=== PATIENT | male | born 1970 | race Caucasian/White ===

== ENCOUNTER 2023-01-17 05:24 | Inpatient (IN) | payer BC, SELFPAY ==
--- NOTE | ~2023-01-17 | XR_ITS ---
EXAMINATION: XR hand LT min 3V INDICATION: Left hand pain and swelling TECHNIQUE: Three views of the left hand are obtained. COMPARISON: None available FINDINGS: There is marked dorsal soft tissue swelling of the hand overlying the metacarpals. No soft tissue gas is identified. There is subchondral cystic change in the first proximal phalanx near the i nterphalangeal joint with a chronic appearing fracture at the lateral aspect at the head of the first proximal phalanx. There is mild osteoarthritis of multiple interphalangeal joints. IMPRESSION: 1. Marked dorsal soft tissue swelling of the hand overlying the metacarpals without associated soft t issue gas identified. 2. Chronic fracture in the head of the first proximal phalanx. Reviewed, dictated and finalized at location [employer]. 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 Marked dorsal soft tissue swelling of the hand overlying the metacarpals wit hout associated soft tissue gas identified. 2. Chronic fracture in the head of the first proximal phalanx.
[2023-01-17 05:22] VITALS: BP 144/83; PULSE 86; RESP 18; TEMP 37; O2SAT 100
--- NOTE | 2023-01-17 07:44 | ED.UPPEXIN ---
HPI - Extremity Injury (Upper) General Chief Complaint: Extremity Injury, Upper Stated Complaint: spider bite Time Seen by Provider: 01/17/23 06:54 History of Present Illness HPI narrative: This is a 52-year-old male, with no significant past medical history, left pain did, who presents to the emergency department complaining of pain and rapid swelling of the left hand. Patient states he was bitten by a brown recluse several days ago was started Keflex. Past 5 hours though he has noticed significant increase in swelling drainage of purulent flud. Complains of 10/10 associated dull pain. He also states he is beginning to lose sensation the fingers of the left hand. Related Data Home Medications Medication Instructions Recorded Confirmed No Home Medications 01/17/23 01/17/23 Allergies Allergy/AdvReac Type Severity Reaction Status Date / Time No Known Allergies Allergy Verified 01/17/23 05:50 Review of Systems Review of Systems: CONSTITUTIONAL: Subjective fevers Denies chills, or sweats. CARDIOVASCULAR: Denies chest pain, palpitations, or edema. RESPIRATORY: Denies cough or dyspnea. GASTROINTESTINAL: Denies abdominal pain, nausea, vomiting, or diarrhea. GENITOURINARY: Denies dysuria or hematuria. SKIN: rapid swelling, erythema and drainage of pus from the left hand MUSCULOSKELETAL: Denies back pain, joint pain, or myalgia. NEUROLOGIC: Denies headache, numbness, dizziness, or weakness. PSYCHIATRIC: Denies anxiety or depression. 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 Smoking status: Never smoker Alcohol intake: current Substance use: never Lack of Transportation: No Lack of Food: Never True Current Housing: I Have Housing Concerned About Future Housing: No Difficulty Paying Gas/Electric Bills: No Difficulty Paying for Meds: No Currently Unemployed: No Education: Decline to Answer Difficulty w/ Childcare or Family Care: No Spiritual care concerns: No Exam Narrative: GENERAL: Well-appearing, well-nourished, and in no acute distress. appears uncomfortable HEAD: Normocephalic, atraumatic. EYES: PERRLA and EOMI. CHEST: Clear to auscultation. No respiratory distress. No wheezes rales or rhonchi HEART: Regular rate and rhythm. No murmur heard. Normal peripheral pulses. EXTREMITIES: There is significant swelling and fluctuance of the left extending from the base of fingers 2 through to the wrist. There is drainage purulent fluid the dorsum of the left hand. flexion of the left hand limited by pain. NEURO: Alert and oriented x3. Decreased sensation over all 5 fingers of the left hand compared to the right. PSYCH: Normal mood and affect. Course Course Emergency Course: 08:28 - X-ray of the hand not concerning for soft tissue gas. White blood cell count elevated at 30. Hemoglobin 8.9. Chemistries demonstrate mild hyponatremia with sodium of 130 and mild hypocalcemia with calcium of 7.5. I discussed the patient with Hand surgeon, Dr. Murphy who recommends IV antibiotics, incision and drainage at bedside and will evaluate the patient. The patient is agreeable to the plan. 09:30 - Incision and drainage performed, please see procedure note. The patient notes significant improvement of his pain. I discussed the patient with hospitalist, Dr. Mcknight who accepts admission. Vital Signs Vital signs: Vital Signs Temperature 98.6 F 01/17/23 05:22 Pulse Rate 86 01/17/23 05:22 Respiratory Rate 18 01/17/23 05:22 Blood Pressure 144/83 H 01/17/23 05:22 Pulse Oximetry 100 01/17/23
[2023-01-17] MEDS: MORPHINE SULFATE (*CRX) 4 MG/ML INJ IV PUSH ×4 (08:00→22:56)
[2023-01-17] MEDS: ONDANSETRON INJ 4 MG/2 ML VIAL IV PUSH ×3 (08:00→20:39)
[2023-01-17 08:10] LABS: Basophils Absolute Auto 0.1 K/mm3 (0.0-0.1); Basophils Percent Auto 0.5 % (0.2-1.2); Eosinophils Absolute Auto 0.1 K/mm3 (0-0.3); Eosinophils Percent Auto 0.3 % (0-4.4); Hematocrit 27.8 % (42.0-52.0); Hemoglobin 8.9 g/dL (14.0-18.0); Immature Granulocyte Absolute 2.57 K/mm3 (0.00-0.031); Immature Granulocyte Percent A 8.5 % (0-0.5); Lymphocytes Absolute Auto 2.28 K/mm3 (0.9-3.2); Lymphocytes Percent Auto 7.5 % (18.3-44.2); Mean Corpuscular Hemoglobin 31.7 pg (26-34); Mean Corpuscular Volume 98.9 fl (80-100); Monocytes Absolute Auto 2.1 K/mm3 (0.1-0.6); Neutrophils Absolute Auto 23.1 K/mm3 (1.3-6.7); Neutrophils Percent Auto 76.2 % (45.5-73.1); Nucleated Red Blood Cells Absolute Auto 0.1 K/mm3 (0.0-0.012); Nucleated Red Blood Cells Perc 0.2 % (0.0-0.2); Platelet Count Result 301 k/mm3 (150-375); Red Blood Count 2.81 M/mm3 (4.6-6.20); Red Cell Distribution Width 14.8 % (11.5-14.5); White Blood Count 30.3 K/mm3 (4.5-10.0)
[2023-01-17] MEDS: MEROPENEM 1 GM/NS 100 ML 1 GM/100 ML BAG IVPB (08:10)
[2023-01-17 08:12] VITALS: BP 124/66; PULSE 79; RESP 18; O2SAT 95
[2023-01-17 08:20] LABS: Lactic Acid Reflex 1.2 mmol/L (0.7-2.0); Prothrombin Time 13.3 Seconds (11.1-14.7)
[2023-01-17 08:21] LABS: Alanine Aminotransferase 148 U/L (6-50); Albumin Level 2.6 g/dL (3.5-5.1); Alkaline Phosphatase 62 U/L (38-126); Anion Gap 4 mmol/L (8-16); Aspartate Amino Transferase 42 U/L (17-59); Bilirubin,Total 0.7 mg/dL (0.2-1.3); Blood Urea Nitrogen 35 mg/dL (9-20); Calcium 7.5 mg/dL (8.4-10.2); Carbon Dioxide 27 mmol/L (22-30); Chloride 99 mmol/L (98-107); Estimated CRCL calculation 112 ml/min; Estimated Glomerular Filt Rate > 60; Glucose 100 mg/dL (65-110); Sodium 130 mmol/L (137-145)
[2023-01-17] MEDS: CLINDAMYCIN 900 MG/D5W 50 ML 900 MG/50 ML PIGGYBACK 50 MG IVPB (08:43)
[2023-01-17] MEDS: VANCOMYCIN 1,250 MG/NS 250 ML 1,250 MG/250 ML BAG 166.67 MG IVPB (11:00)
--- NOTE | 2023-01-17 11:15 | PM.IMHP ---
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 The cables were wrapped around his hand. When he loosen them he saw a large green to brown spider crawl out on run away. His hand became red and swollen. He went to urgent care and received a prescription for Keflex 500 mg 4 times daily. He initially improved. However the past 2 days he had increased pain and swelling in the left hand. He had some low-grade fever and chilling today. Him to the emergency department where x-rays showed no gas and no bony destruction of the left hand. And incision and drainage was performed by the emergency room physician and a large amount of purulent material was obtained for culture. He is admitted for IV antibiotics and possible further wound debridement. He states he is otherwise healthy and takes only allopurinol for gout prevention. Last episode was about 4-5 years ago. He has been a little lightheaded since the spider bite and his appetite has been very poor. He denied chest pain or shortness of breath or palpitations. He denied GI issues except for loose stool 2 days ago. No abnormal bleeding. No difficulty urinating. No swelling or pain in other joints or extremities. No weakness or numbness. No headaches. 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 Smoking status: Never smoker Alcohol intake: current Substance use: never Lack of Transportation: No Lack of Food: Never True Current Housing: I Have Housing Concerned About Future Housing: No Difficulty Paying Gas/Electric Bills: No Difficulty Paying for Meds: No Currently Unemployed: No Education: Decline to Answer Difficulty w/ Childcare or Family Care: No Spiritual care concerns: No Meds Home Medications and Allergies Home Medications Medication Instructions Recorded Confirmed Type No Home Medications 01/17/23 01/17/23 History Allergies Allergy/AdvReac Type Severity Reaction Status Date / Time No Known Allergies Allergy Verified 01/17/23 05:50 Vital Signs Vital Signs - 24 hr 01/17/23 05:22 01/17/23 08:12 Temperature 98.6 F Pulse Rate 86 79 Respiratory Rate 18 18 Blood Pressure 144/83 H 124/66 Pulse Oximetry 100 95 Oxygen Delivery Room Air Exam Narrative: HEENT: PERRL, sclerae nonicteric, pharyngeal mucosa pink and intact NECK: No JVD, adenopathy, or thyromegaly CHEST: Clear to auscultation. Normal effort. HEART: NL S1/S2, regular, no murmur ABDOMEN: BS+, soft, nontender, no mass, no bruits EXTREMITIES: No cyanosis, edema, or clubbing. ERYTHEMA WITH MODERATELY SEVERE SWELLING OF THE DORSAL LEFT HAND WITH DARREN PENCIL AND SIZE AREA DARKENED TISSUE IN THE MIDPORTION. AT THE INCISION SITE THERE IS A LARGE AMOUNT OF PURULENCE MATERIAL DRAINING FROM THE HAND. THERE IS NO ADENOPATHY PALPATED IN THE AXILLARY REGION OR IN THE EPITROCHLEAR REGION OF THE LEFT UPPER EXTREMITY. NEUROLOGIC: CN intact and symmetric to inspection. MUSCULOSKELETAL: Tone and strength symmetric. PSYCH: Alert. Oriented to person, place, and time. H&P: Results Labs Labs: Short CBC 01/17/23 Range/Units 08:01 WBC 30.3 H (4.5-10.0) K/mm3 Hgb 8.9 L (14.0-18.0) g/dL Hct 27.8 L
[2023-01-17 11:38] VITALS: BP 130/79; PULSE 80; RESP 18; O2SAT 99
[2023-01-17 11:38] LABS: Immature Reticulocyte Fraction 38.4 % (3.0-15.9); Reticulocyte Hemoglobin Conten 38.9 pg (28.2-35.7); Reticulocytes Absolute 0.11 M/mm3 (0.02-0.1)
--- NOTE | 2023-01-17 12:09 | ADMGEN ---
This patient, Jb Gramajo, was admitted to Medical Room 241-01 at 1200. Patient/family oriented to hospital policies and general routines including ID bracelet, bed and alarms, visiting hours, pain management, procedures, bathroom and other care routines, personal items, smoking policy, room service/diet, and visiting hours. Information on how to activate the Rapid Response Team has been discussed. Patient/Family are encouraged to report perceived risks to care and to ask questions if they do not understand what they are told or what they should do.
[2023-01-17 12:11] VITALS: BMI 28.8
[2023-01-17 12:15] VITALS: BP 143/68; PULSE 101; RESP 16; TEMP 36.7; O2SAT 98
[2023-01-17] MEDS: VANCOMYCIN 1,000 MG/NS 250 ML 1,000 MG/250 ML BAG 250 MG IVPB (12:20)
[2023-01-17] MEDS: KETOROLAC 30 MG/ML VIAL (*BKC) IV PUSH (16:58)
[2023-01-17 19:15] LABS: Hematocrit 22.4 % (42.0-52.0); Hemoglobin 7.3 g/dL (14.0-18.0); Mean Corpuscular HGB Conc 32.6 g/dl (32-36); Mean Corpuscular Hemoglobin 32.3 pg (26-34); Mean Corpuscular Volume 99.1 fl (80-100); Platelet Count Result 272 k/mm3 (150-375); Red Blood Count 2.26 M/mm3 (4.6-6.20); White Blood Count 32.2 K/mm3 (4.5-10.0)
[2023-01-17 19:18] VITALS: BP 130/72; PULSE 93; RESP 16; TEMP 36.6; O2SAT 98
[2023-01-17 19:26] LABS: Uric Acid 4.7 mg/dL (3.5-8.5)
[2023-01-17 19:46] LABS: Iron 32 ug/dL (49-181); Iron 35 ug/dL (49-181)
[2023-01-17 19:55] LABS: Percent Iron Saturation 15 % (20-50)
[2023-01-17 19:56] LABS: Percent Iron Saturation 16 % (20-50)
[2023-01-17 20:00] VITALS: PULSE 93; RESP 16; O2SAT 98
[2023-01-17] MEDS: VANCOMYCIN 1,500 MG/NS 500 ML 1,500 MG/500 ML BAG 250 MG IVPB (20:36)
[2023-01-17 21:25] LABS: Folic Acid 3.3 ng/mL (2.76->20)
[2023-01-18] VITALS (8 sets, daily range): BP systolic 115–133; BP diastolic 64–75; PULSE 79–96; RESP 16–20; TEMP 36.1–36.9; O2SAT 95–100
[2023-01-18] MEDS: MORPHINE SULFATE (*CRX) 4 MG/ML INJ IV PUSH ×4 (05:08→21:31)
[2023-01-18] MEDS: ONDANSETRON INJ 4 MG/2 ML VIAL IV PUSH ×4 (05:08→21:31)
[2023-01-18 06:00] LABS: Basophils Absolute Auto 0.1 K/mm3 (0.0-0.1); Basophils Percent Auto 0.3 % (0.2-1.2); Eosinophils Absolute Auto 0.2 K/mm3 (0-0.3); Eosinophils Percent Auto 0.6 % (0-4.4); Immature Granulocyte Absolute 2.07 K/mm3 (0.00-0.031); Immature Granulocyte Percent A 7.9 % (0-0.5); Lymphocytes Absolute Auto 1.51 K/mm3 (0.9-3.2); Lymphocytes Percent Auto 5.8 % (18.3-44.2); Mean Corpuscular HGB Conc 32.2 g/dl (32-36); Mean Corpuscular Hemoglobin 31.6 pg (26-34); Mean Corpuscular Volume 98.1 fl (80-100); Mean Platelet Volume 8.9 fl (7.4-10.4); Monocytes Absolute Auto 1.6 K/mm3 (0.1-0.6); Monocytes Percent Auto 5.9 % (2.6-8.5); Neutrophils Absolute Auto 20.8 K/mm3 (1.3-6.7); Neutrophils Percent Auto 79.5 % (45.5-73.1); Platelet Count Result 281 k/mm3 (150-375); Red Blood Count 2.12 M/mm3 (4.6-6.20); Red Cell Distribution Width 15.1 % (11.5-14.5); White Blood Count 26.1 K/mm3 (4.5-10.0)
[2023-01-18 06:28] LABS: Alanine Aminotransferase 88 U/L (6-50); Albumin Level 2.3 g/dL (3.5-5.1); Alkaline Phosphatase 50 U/L (38-126); Anion Gap 1 mmol/L (8-16); Aspartate Amino Transferase 29 U/L (17-59); Bilirubin,Total 0.7 mg/dL (0.2-1.3); Blood Urea Nitrogen 23 mg/dL (9-20); Calcium 7.2 mg/dL (8.4-10.2); Carbon Dioxide 27 mmol/L (22-30); Chloride 101 mmol/L (98-107); Estimated CRCL calculation 129 ml/min; Estimated Glomerular Filt Rate > 60; Glucose 104 mg/dL (65-110); Hematocrit 20.8 % (42.0-52.0); Hemoglobin 6.7 g/dL (14.0-18.0); Potassium 4.7 mmol/L (3.4-5.0); Sodium 129 mmol/L (137-145)
[2023-01-18 06:29] LABS: Hypochromasia 2+ (NORMAL); Platelet Estimate Adequate (Adequate); Schistocytes None Seen (NORMAL)
[2023-01-18 07:01] LABS: HIV 1/2 Ab P24 Ag Result Negative (Negative)
[2023-01-18 08:27] LABS: Hematocrit 20.6 % (42.0-52.0); Hemoglobin 6.6 g/dL (14.0-18.0)
[2023-01-18] MEDS: VANCOMYCIN 1,500 MG/NS 500 ML 1,500 MG/500 ML BAG 250 MG IVPB (08:49)
[2023-01-18] MEDS: allopurinoL 100 MG TABLET 200 MG PO (08:50)
[2023-01-18] MEDS: PANTOPRAZOLE SODIUM IV 40 MG VIAL IV PUSH ×2 (11:05→21:31)
[2023-01-18 12:18] LABS: Sodium Urine Random 46 meq/L
[2023-01-18] MEDS: KETOROLAC 30 MG/ML VIAL (*BKC) IV PUSH ×2 (12:34→18:13)
[2023-01-18 12:40] LABS: Hemoglobin 5.7 g/dL (14.0-18.0)
[2023-01-18 12:41] LABS: Hematocrit 17.6 % (42.0-52.0)
[2023-01-18] MEDS: SODIUM CHLORIDE 0.9% IV 250 ML 30 ML IV CONT (15:13)
--- NOTE | 2023-01-18 15:22 | P.PNIM_ITS ---
Progress Note: A&P Assessment and Plan (1) Abscess of hand: Code(s): L02.519 - Cutaneous abscess of unspecified hand Status: Acute Assessment and Plan: Patient presents with left hand pain and swelling. Was treated with keflex without benefit * Left hand xray showing edema but negative for bony erosions or gas (he has a hx of left hand surgery) * BCx collected. Left hand I&D and cultures obtained in ED * Given meropenem, vancomycin and clindamycin in ED * Continued on Vanco. Will add Rocephin * Plastics consulted for possible further I&D left hand (2) Spider bite: Qualifiers: Encounter type: sequela Injury intent: accidental or unintentional Qualified Code(s): T63.301S - Toxic effect of unspecified spider venom, accidental (unintentional), sequela Code(s): T63.301A - Toxic effect of unspecified spider venom, accidental (unintentional), initial encounter Status: Acute Assessment and Plan: Complicated by abscess formation * As above (3) Anemia: Qualifiers: Anemia type: unspecified type Qualified Code(s): D64.9 - Anemia, unspecified Code(s): D64.9 - Anemia, unspecified Status: Acute Assessment and Plan: Hgb 8.9 on admission but has dropped to 5.7 today. * Normochromic and normocytic * Etiology unclear * Iron studies concerning for anemia of chronic disease * B12 and folate low end of normal. check MMA * Stool guaiac ordered * Check studies to assess for hemolysis but Ab negative for type and cross * Add Protonix for possible PUD/gastritis (4) Hyponatremia: Code(s): E87.1 - Hypo-osmolality and hyponatremia Status: Acute Assessment and Plan: Sodium 130 on admission. * Possibly related to recent decreased p.o. intake * FENa 1% to suggest renal disease. * Possibly underlying renal disease * Renal function normal. * Check UA (5) Leukocytosis: Qualifiers: Leukocytosis type: bandemia Qualified Code(s): D72.825 - Bandemia Code(s): D72.829 - Elevated white blood cell count, unspecified Status: Acute Assessment and Plan: WBC eelvated on admission and climbed to 32K with left shift * Presumably due to the above infection * Repeat WBC better * Continue to monitor to ensure approrpiate trend (6) Abnormal liver enzymes: Code(s): R74.8 - Abnormal levels of other serum enzymes Status: Acute Assessment and Plan: LFTs on admission (01/17) elevated with ALT 148 with NL AST (42). TP low at 5.0 and Albumin 2.6. * HIV negative. Will check for Hepatitis B and C * Possibly due to allopurinol. * Repeat values better with ALT 88 Plan DVT Prophylaxis - Lovenox Code status - full Subjective Date/time seen: 01/18/23 15:22 Interval history: 52yo male with gout here for left hand pain and swelling. No abd pain. Never had colonoscopy. Rare GERD symptoms. Did have dark loose stool prior to admission but now constipated. No change in stool pattern. No tarry stools. No CP or SOB. +flatus. No n/v. Right hand was pale this morning but better now. No discoloration to the digits in the cold. Complains of bilateral feet numbness. Exam Narrative: AF 97.0 130/65 85 18 100% ra Gen - NARD Chest - CTA bilaterally, nml RR CV - RRR S1/S2 Abd - Soft, NT/ND, Positive BS Ext - No pedal edema. 2+ DP and radial pulses bilaterally. Neuro - Alert and oriented. Nonfocal exam. normal sensation to the right h
--- NOTE | 2023-01-18 15:22 | PM.IMPN ---
Progress Note: A&P Assessment and Plan (1) Abscess of hand: Code(s): L02.519 - Cutaneous abscess of unspecified hand Status: Acute Assessment and Plan: Patient presents with left hand pain and swelling. Was treated with keflex without benefit Left hand xray showing edema but negative for bony erosions or gas (he has a hx of left hand surgery) BCx collected. Left hand I&D and cultures obtained in ED Given meropenem, vancomycin and clindamycin in ED Continued on Vanco. Will add Rocephin Plastics consulted for possible further I&D left hand (2) Spider bite: Qualifiers: Encounter type: sequela Injury intent: accidental or unintentional Qualified Code(s): T63.301S - Toxic effect of unspecified spider venom, accidental (unintentional), sequela Code(s): T63.301A - Toxic effect of unspecified spider venom, accidental (unintentional), initial encounter Status: Acute Assessment and Plan: Complicated by abscess formation As above (3) Anemia: Qualifiers: Anemia type: unspecified type Qualified Code(s): D64.9 - Anemia, unspecified Code(s): D64.9 - Anemia, unspecified Status: Acute Assessment and Plan: Hgb 8.9 on admission but has dropped to 5.7 today. Normochromic and normocytic Etiology unclear Iron studies concerning for anemia of chronic disease B12 and folate low end of normal. check MMA Stool guaiac ordered Check studies to assess for hemolysis but Ab negative for type and cross Add Protonix for possible PUD/gastritis (4) Hyponatremia: Code(s): E87.1 - Hypo-osmolality and hyponatremia Status: Acute Assessment and Plan: Sodium 130 on admission. Possibly related to recent decreased p.o. intake FENa 1% to suggest renal disease. Possibly underlying renal disease Renal function normal. Check UA (5) Leukocytosis: Qualifiers: Leukocytosis type: bandemia Qualified Code(s): D72.825 - Bandemia Code(s): D72.829 - Elevated white blood cell count, unspecified Status: Acute Assessment and Plan: WBC eelvated on admission and climbed to 32K with left shift Presumably due to the above infection Repeat WBC better Continue to monitor to ensure approrpiate trend (6) Abnormal liver enzymes: Code(s): R74.8 - Abnormal levels of other serum enzymes Status: Acute Assessment and Plan: LFTs on admission (01/17) elevated with ALT 148 with NL AST (42). TP low at 5.0 and Albumin 2.6. HIV negative. Will check for Hepatitis B and C Possibly due to allopurinol. Repeat values better with ALT 88 Plan DVT Prophylaxis - Lovenox Code status - full Subjective Date/time seen: 01/18/23 15:22 Interval history: 52yo male with gout here for left hand pain and swelling. No abd pain. Never had colonoscopy. Rare GERD symptoms. Did have dark loose stool prior to admission but now constipated. No change in stool pattern. No tarry stools. No CP or SOB. +flatus. No n/v. Right hand was pale this morning but better now. No discoloration to the digits in the cold. Complains of bilateral feet numbness. Exam Narrative: AF 97.0 130/65 85 18 100% ra Gen - NARD Chest - CTA bilaterally, nml RR CV - RRR S1/S2 Abd - Soft, NT/ND, Positive BS Ext - No pedal edema. 2+ DP and radial pulses bilaterally. Neuro - Alert and oriented. Nonfocal exam. normal sensation to the right hand and feet. Left fingers numb Psych - Nml mood and affect Skin - left dorsum hand edematous with mild erythema. recent incision site mostly sealed with small shallow ulcer noted Objective Data Vital Signs Vital Signs: Vital Signs - 24 hr 01/17/23 19:18 01/17/23 20:00 01/18/23 05:10 Temperature 97.8 F 97.9 F Pulse Rate 93 93 96 Respiratory Rate 16 16 20 Blood Pressure 130/72 115/75 Pulse Oximetry 98 98 98 Oxygen Delivery Room Air 01/18/23 08:00 01/18/23 14:00
[2023-01-18 16:54] LABS: Vancomycin Trough 10.3 ug/mL (10.0-20.0)
[2023-01-18] MEDS: cefTRIAXone 2 GM/NS 100 ML 2 GM/100 ML BAG IVPB (17:19)
[2023-01-18 17:36] LABS: Hepatitis B Surface Antigen Negative (Negative)
[2023-01-18 17:42] LABS: HAV RESULT Negative (Negative); Hepatitis B Core IgM Result Negative (Negative)
[2023-01-18 17:54] LABS: Hepatitis C Virus Antibody Negative (Negative)
[2023-01-18 18:04] LABS: Lactate Dehydrogenase 164 U/L (120-246)
[2023-01-18 18:49] LABS: Appearance Urine Clear (Clear); Bilirubin Urine Negative (Negative); Blood Urine Negative (Negative); Color Urine Yellow (Yellow); Glucose Urine UA Negative (Negative); Ketones Urine Negative (Negative); Leukocyte Esterase Ur Negative LEU/UL (Negative); Nitrate Urine Negative (Negative); Protein Urine Negative (Negative); Specific Grav Ur 1.007 (1.001-1.035); Urobilinogen Urine 0.2 mg/dL (<2.0)
[2023-01-18 18:56] LABS: Add Urine Microscopic? NO
[2023-01-18 19:14] LABS: Hematocrit 24.8 % (42.0-52.0); Hemoglobin 7.9 g/dL (14.0-18.0); Immature Reticulocyte Fraction 37.1 % (3.0-15.9); Reticulocyte Hemoglobin Conten 34.8 pg (28.2-35.7); Reticulocyte Percent 5.71 % (0.7-4.3); Reticulocytes Absolute 0.15 M/mm3 (0.02-0.1)
[2023-01-18 21:32] LABS: Vancomycin Trough 7.8 ug/mL (10.0-20.0)
[2023-01-18] MEDS: VANCOMYCIN 1,750 MG/NS 500 ML 1,750 MG/500 ML BAG 250 MG IVPB (22:03)
[2023-01-19] VITALS (8 sets, daily range): BP systolic 126–140; BP diastolic 64–72; PULSE 80–90; RESP 16–18; TEMP 36.4–37.1; O2SAT 93–100
[2023-01-19 00:37] LABS: Hematocrit 19.7 % (42.0-52.0); Hemoglobin 6.4 g/dL (14.0-18.0)
[2023-01-19] MEDS: MORPHINE SULFATE (*CRX) 4 MG/ML INJ IV PUSH ×3 (01:07→16:01)
[2023-01-19] MEDS: SODIUM CHLORIDE 0.9% IV 250 ML 30 ML IV CONT (02:15)
[2023-01-19] MEDS: KETOROLAC 30 MG/ML VIAL (*BKC) IV PUSH ×2 (04:18→16:01)
[2023-01-19] MEDS: VANCOMYCIN 1,750 MG/NS 500 ML 1,750 MG/500 ML BAG 250 MG IVPB ×3 (05:28→22:23)
[2023-01-19 05:34] LABS: Hematocrit 23.8 % (42.0-52.0); Mean Corpuscular HGB Conc 33.6 g/dl (32-36); Mean Corpuscular Hemoglobin 31.3 pg (26-34); Mean Platelet Volume 8.8 fl (7.4-10.4); Platelet Count Result 253 k/mm3 (150-375); Red Blood Count 2.56 M/mm3 (4.6-6.20); White Blood Count 20.9 K/mm3 (4.5-10.0)
[2023-01-19 05:35] LABS: Hemoglobin 7.9 g/dL (14.0-18.0)
[2023-01-19 05:59] LABS: Alanine Aminotransferase 130 U/L (6-50); Albumin Level 2.5 g/dL (3.5-5.1); Alkaline Phosphatase 83 U/L (38-126); Anion Gap 3 mmol/L (8-16); Aspartate Amino Transferase 66 U/L (17-59); Bilirubin,Total 0.6 mg/dL (0.2-1.3); Blood Urea Nitrogen 13 mg/dL (9-20); Calcium 7.8 mg/dL (8.4-10.2); Carbon Dioxide 26 mmol/L (22-30); Chloride 103 mmol/L (98-107); Estimated CRCL calculation 99 ml/min; Estimated Glomerular Filt Rate > 60; Glucose 108 mg/dL (65-110); Potassium 4.5 mmol/L (3.4-5.0); Sodium 132 mmol/L (137-145)
[2023-01-19] MEDS: PANTOPRAZOLE SODIUM IV 40 MG VIAL IV PUSH ×2 (08:13→20:31)
[2023-01-19] MEDS: ACETAMINOPHEN 325 MG TABLET 650 MG PO ×3 (08:13→20:36)
[2023-01-19] MEDS: allopurinoL 100 MG TABLET 200 MG PO (08:13)
--- NOTE | 2023-01-19 08:19 | PC.NURSE ---
vancomycin infusing, will administer next abx when it is completed
--- NOTE | 2023-01-19 10:02 | P.PNIM_ITS ---
Progress Note: A&P Assessment and Plan (1) Abscess of hand: Code(s): L02.519 - Cutaneous abscess of unspecified hand Status: Acute Assessment and Plan: Patient presents with left hand pain and swelling. Was treated with keflex without benefit * Left hand xray showing edema but negative for bony erosions or gas (he has a hx of left hand surgery) * BCx 01/17: NGTD * Left hand I&D and cultures 01/17: growing Staph aureus * Given meropenem, vancomycin and clindamycin in ED * Continued on Vanco and Rocephin * Plastics consulted for possible further I&D left hand * Follow up on sensitivities (2) Spider bite: Qualifiers: Encounter type: sequela Injury intent: accidental or unintentional Qualified Code(s): T63.301S - Toxic effect of unspecified spider venom, accidental (unintentional), sequela Code(s): T63.301A - Toxic effect of unspecified spider venom, accidental (unintentional), initial encounter Status: Acute Assessment and Plan: Complicated by abscess formation * As above (3) Anemia: Qualifiers: Anemia type: unspecified type Qualified Code(s): D64.9 - Anemia, unspecified Code(s): D64.9 - Anemia, unspecified Status: Acute Assessment and Plan: Hgb 8.9 on admission but has dropped to 5.7 today. * Normochromic and normocytic * Etiology unclear * Iron studies concerning for anemia of chronic disease * B12 and folate low end of normal. check MMA * Stool guaiac ordered * Hemolysis unlikely. Either GI source or from BM failure but retic count is high * Continue Protonix for possible PUD/gastritis (4) Hyponatremia: Code(s): E87.1 - Hypo-osmolality and hyponatremia Status: Acute Assessment and Plan: Sodium 130 on admission. * Possibly related to recent decreased p.o. intake * FENa 1% to suggest renal disease. * Possibly underlying renal disease * Renal function normal. UA clear. * Sodium better today. Follow (5) Leukocytosis: Qualifiers: Leukocytosis type: bandemia Qualified Code(s): D72.825 - Bandemia Code(s): D72.829 - Elevated white blood cell count, unspecified Status: Acute Assessment and Plan: WBC eelvated on admission and climbed to 32K with left shift * Presumably due to the above infection * Repeat WBC better * Continue to monitor to ensure approrpiate trend (6) Abnormal liver enzymes: Code(s): R74.8 - Abnormal levels of other serum enzymes Status: Acute Assessment and Plan: LFTs on admission (01/17) elevated with ALT 148 with NL AST (42). TP low at 5.0 and Albumin 2.6. * HIV and hepatitis negative. * Possibly due to allopurinol. * Repeat values worse with AST 66 and ALT 130 Plan DVT Prophylaxis - SCD Code status - full Subjective Date/time seen: 01/19/23 10:02 Interval history: 52yo male with gout here for left hand pain and swelling. Patient has increasing edema to the left hand. He overall feels better. Still no bowel movements. Numbness in his feet is resolving. Exam Narrative: AF 97.8 126/64 84 16 98% ra Gen - NARD Chest - CTA bilaterally, nml RR CV - RRR S1/S2 Abd - Soft, NT/ND, Positive BS Ext - No pedal edema. 2+ DP and radial pulses bilaterally. Neuro - Alert and oriented. Left fingers numb. 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 recen
--- NOTE | 2023-01-19 10:02 | PM.IMPN ---
Progress Note: A&P Assessment and Plan (1) Abscess of hand: Code(s): L02.519 - Cutaneous abscess of unspecified hand Status: Acute Assessment and Plan: Patient presents with left hand pain and swelling. Was treated with keflex without benefit Left hand xray showing edema but negative for bony erosions or gas (he has a hx of left hand surgery) BCx 01/17: NGTD Left hand I&D and cultures 01/17: growing Staph aureus Given meropenem, vancomycin and clindamycin in ED Continued on Vanco and Rocephin Plastics consulted for possible further I&D left hand Follow up on sensitivities (2) Spider bite: Qualifiers: Encounter type: sequela Injury intent: accidental or unintentional Qualified Code(s): T63.301S - Toxic effect of unspecified spider venom, accidental (unintentional), sequela Code(s): T63.301A - Toxic effect of unspecified spider venom, accidental (unintentional), initial encounter Status: Acute Assessment and Plan: Complicated by abscess formation As above (3) Anemia: Qualifiers: Anemia type: unspecified type Qualified Code(s): D64.9 - Anemia, unspecified Code(s): D64.9 - Anemia, unspecified Status: Acute Assessment and Plan: Hgb 8.9 on admission but has dropped to 5.7 today. Normochromic and normocytic Etiology unclear Iron studies concerning for anemia of chronic disease B12 and folate low end of normal. check MMA Stool guaiac ordered Hemolysis unlikely. Either GI source or from BM failure but retic count is high Continue Protonix for possible PUD/gastritis (4) Hyponatremia: Code(s): E87.1 - Hypo-osmolality and hyponatremia Status: Acute Assessment and Plan: Sodium 130 on admission. Possibly related to recent decreased p.o. intake FENa 1% to suggest renal disease. Possibly underlying renal disease Renal function normal. UA clear. Sodium better today. Follow (5) Leukocytosis: Qualifiers: Leukocytosis type: bandemia Qualified Code(s): D72.825 - Bandemia Code(s): D72.829 - Elevated white blood cell count, unspecified Status: Acute Assessment and Plan: WBC eelvated on admission and climbed to 32K with left shift Presumably due to the above infection Repeat WBC better Continue to monitor to ensure approrpiate trend (6) Abnormal liver enzymes: Code(s): R74.8 - Abnormal levels of other serum enzymes Status: Acute Assessment and Plan: LFTs on admission (01/17) elevated with ALT 148 with NL AST (42). TP low at 5.0 and Albumin 2.6. HIV and hepatitis negative. Possibly due to allopurinol. Repeat values worse with AST 66 and ALT 130 Plan DVT Prophylaxis - SCD Code status - full Subjective Date/time seen: 01/19/23 10:02 Interval history: 52yo male with gout here for left hand pain and swelling. Patient has increasing edema to the left hand. He overall feels better. Still no bowel movements. Numbness in his feet is resolving. Exam Narrative: AF 97.8 126/64 84 16 98% ra Gen - NARD Chest - CTA bilaterally, nml RR CV - RRR S1/S2 Abd - Soft, NT/ND, Positive BS Ext - No pedal edema. 2+ DP and radial pulses bilaterally. Neuro - Alert and oriented. Left fingers numb. 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 recent incision site mostly sealed Objective Data Vital Signs Vital Signs: Vital Signs - 24 hr 01/18/23 14:00 01/18/23 15:11 01/18/23 15:27 Temperature 98.4 F 97.0 F L 97.4 F L Pulse Rate 88 85 87 Respiratory Rate 18 18 18 Blood Pressure 120/64 130/65 125/65 Pulse Oximetry 95 100 99 Oxygen Delivery 01/18/23 16:27 01/18/23 17:00 01/18/23 20:17 Temperature 97.7 F 97.3 F L 98.2 F Pulse Rate 82 80 79 Respiratory Rate 18 18 16 Blood Pressure 133/67 127/72 123/65 Pulse Oximetry 100 10
[2023-01-19] MEDS: cefTRIAXone 2 GM/NS 100 ML 2 GM/100 ML BAG IVPB (10:48)
--- NOTE | 2023-01-19 14:55 | WPDGICN ---
Assessment and Plan Assessment and plan (1) Acute anemia: Code(s): D64.9 - Anemia, unspecified Status: Acute Assessment and Plan: ldh normal, also bili- that will go against hemolysis denies overt gib will do egd and colonoscopy tomorrow to assess if gi source, if negative then will need hematology consult (2) Abscess of hand: Code(s): L02.519 - Cutaneous abscess of unspecified hand Status: Acute Assessment and Plan: on abx (3) Leukocytosis: Qualifiers: Leukocytosis type: bandemia Qualified Code(s): D72.825 - Bandemia Code(s): D72.829 - Elevated white blood cell count, unspecified Status: Acute Assessment and Plan: sirs, on abx (4) Abnormal liver enzymes: Code(s): R74.8 - Abnormal levels of other serum enzymes Status: Acute Assessment and Plan: probably from sirs/infection will check also ck level (5) Spider bite: Qualifiers: Encounter type: sequela Injury intent: accidental or unintentional Qualified Code(s): T63.301S - Toxic effect of unspecified spider venom, accidental (unintentional), sequela Code(s): T63.301A - Toxic effect of unspecified spider venom, accidental (unintentional), initial encounter Status: Acute (6) Hyponatremia: Code(s): E87.1 - Hypo-osmolality and hyponatremia Status: Acute GI Consult Note Consult date/time: 01/19/23 14:55 Reason for consult: acute anemia HPI: Jb Gramajo is a 52 year old male with no really chronic medical condition who about 10 days ago after he was moving some computer cables at his office he felt sudden pain in his dorsal left hand, he saw a brown recluse spider, then his hand became red and swollen, he was prescribed Keflex 500 mg 4 times daily with some initial improvement but last 3 days again more increased pain and swelling in the left hand with low-grade fever. And incision and drainage was performed by the emergency room physician and a large amount of purulent material was obtained for culture.?Now on iv antibiotics, also found to have hgb 6, wbc 26k, na 129, normal creat, bun 23. He denies overt gib, never had scopes. Review of Systems Constitutional: Constitutional: Reports chills Eyes: Eyes: Denies blurry vision ENT: Reports Normal hearing present Cardiovascular: Cardiovascular: Denies chest pain Respiratory: Respiratory: Denies cough Gastrointestinal: Gastrointestinal: Denies melena, Denies nausea and Denies vomiting Genitourinary: Genitourinary: Denies dysuria Musculoskeletal: Comments: pain left hand Integumentary/Breasts: Comments: abscess left hand Neurologic: Denies confusion Psychiatric: Psychiatric: Denies behavioral changes [facility] Past Medical History Medical History (Updated 01/19/23 @ 15:02 by Andrew Padilla MD) Acute anemia Gout Surgical History Surgical History (Updated 01/17/23 @ 16:20 by Oniel Mcknight MD) H/O umbilical hernia repair Social History Social History (Updated 01/17/23 @ 16:16 by Oniel Mcknight MD) 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 Smoking status: Never smoker Alcohol intake: current Substance use: never Lack of Transportation: No Lack of Food: Never True Current Housing: I Have Housing Concerned About Future Housing: No Difficulty Paying Gas/Electric Bills: No Difficulty Paying for Meds: No Currently Unemployed: No Education: Decline to Answer Difficulty w/ Childcare or Family Care: No Spiritual care concerns: No Meds Home Medications and Allergies Home Medications Medication Instructions Recorded Confirmed Type No Home Medications 01/17/23 01/17/23 History Allergies Allergy/AdvReac Type Severity Reaction Status Date / Time No Known Allergies Allergy Verified 01/17/23 05:50 Vital
--- NOTE | 2023-01-19 15:21 | WPDCN ---
Assessment and Plan Assessment and plan (1) Hand pain, left: Code(s): M79.642 - Pain in left hand Status: Acute Assessment and Plan: 52yo male with left doral hand draining abscess s/p spider bite. reviewed other provider notes and discussed impression and Dx and no indication for further surgical intervention at this time as wound is draiing and doesn't appear loculated. Plan: 1) new culture swab taken from expressed fluid2 2) compression and elevation 3) warm hand moist compresses or warm water soaks tid 4) abx per primary 5) care per primary (2) Spider bite: Qualifiers: Encounter type: sequela Injury intent: accidental or unintentional Qualified Code(s): T63.301S - Toxic effect of unspecified spider venom, accidental (unintentional), sequela Code(s): T63.301A - Toxic effect of unspecified spider venom, accidental (unintentional), initial encounter Status: Acute (3) Abscess of hand: Code(s): L02.519 - Cutaneous abscess of unspecified hand Status: Acute HPI Data of Consult Date/Time: 01/19/23 15:21 Requesting Physician: Oniel Mcknight MD Primary Care Provider: INTERMISSION COORDINATOR PHYSICIAN Consult Narrative Narrative: Jb Gramajo is a 52 year old male admitted for IV abx mgmt left dorsal hand abscess from reported spider bite also noted to have low hemoglobin while in hospital and planning for upper/lower gi scope tomorrow pt notes he saw spider on hand 2 weeks ago and the next day began to be swollen and tender. took medrol dose pack and outpatient po abx provided by his doctors he works with, was elevating and wearing ede bandage and was starting to get better, but presented to ER as it started draining and since admission no further compression has been done and about as worse as its been no other concerns PMFSH Past Medical History Medical History (Updated 01/19/23 @ 15:02 by Andrew Padilla MD) Acute anemia Gout Surgical History Surgical History (Updated 01/17/23 @ 16:20 by Oniel Mcknight MD) H/O umbilical hernia repair Social History Social History (Updated 01/17/23 @ 16:16 by Oniel Mcknight MD) 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 Smoking status: Never smoker Alcohol intake: current Substance use: never Lack of Transportation: No Lack of Food: Never True Current Housing: I Have Housing Concerned About Future Housing: No Difficulty Paying Gas/Electric Bills: No Difficulty Paying for Meds: No Currently Unemployed: No Education: Decline to Answer Difficulty w/ Childcare or Family Care: No Spiritual care concerns: No Meds Home Medications and Allergies Home Medications Medication Instructions Recorded Confirmed Type No Home Medications 01/17/23 01/17/23 History Allergies Allergy/AdvReac Type Severity Reaction Status Date / Time No Known Allergies Allergy Verified 01/17/23 05:50 Vital Signs Vital Signs - 24 hr 01/18/23 15:27 01/18/23 16:27 01/18/23 17:00 Temperature 36.3 C L 36.5 C 36.3 C L Pulse Rate 87 82 80 Respiratory Rate 18 18 18 Blood Pressure 125/65 133/67 127/72 Pulse Oximetry 99 100 100 Oxygen Delivery 01/18/23 20:17 01/18/23 20:00 01/19/23 02:10 Temperature 36.8 C 37.0 C Pulse Rate 79 79 89 Respiratory Rate 16 16 18 Blood Pressure 123/65 130/64 Pulse Oximetry 99 99 100 Oxygen Delivery Room Air 01/19/23 02:22 01/19/23 02:25 01/19/23 04:17 Temperature 36.8 C 36.7 C 36.9 C Pulse Rate 89 90 88 Respiratory Rate 18 18 16 Blood Pressure 140/67 132/72 126/67 Pulse Oximetry 100 100 100 Oxygen Delivery 01/19/23 06:00 01/19/23 08:15 01/19/23 14:00 Temperature 36.6 C 36.4 C Pulse Rate 84 86 Respiratory Rate 16 16 Blood Pressure 126/64 137/72 Pulse Oximetry 98 100 Oxygen Delivery Room Air Exam Narrative: Gen: left d
[2023-01-19] MEDS: polyethylene glycoL 3350 238 GM BOTTLE PO (16:02)
[2023-01-19] MEDS: BISACODYL 5 MG TABLET EC 20 MG PO (16:02)
[2023-01-19 19:15] LABS: IFOB Positive Control Positive; Immunochemical Fecal Occult Bl Positive (N)
[2023-01-19] MEDS: DOCUSATE SODIUM 100 MG CAPSULE PO (20:31)
[2023-01-19 21:31] LABS: Vancomycin Trough 18.9 ug/mL (10.0-20.0)
--- NOTE | 2023-01-19 21:48 | PC.NURSE ---
Patient refusing warm compresses. Requested to wrap warm blanket around dressing instead, blanket provided. Educated provided.
[2023-01-20] MEDS: MAGNESIUM CITRATE 300 ML BTL PO (01:58)
[2023-01-20] MEDS: ACETAMINOPHEN 325 MG TABLET 650 MG PO (02:01)
[2023-01-20] MEDS: VANCOMYCIN 1,750 MG/NS 500 ML 1,750 MG/500 ML BAG 250 MG IVPB ×2 (06:08→15:40)
[2023-01-20 06:29] LABS: Hematocrit 24.4 % (42.0-52.0); Hemoglobin 7.8 g/dL (14.0-18.0); Mean Corpuscular Hemoglobin 30.4 pg (26-34); Mean Corpuscular Volume 94.9 fl (80-100); Mean Platelet Volume 8.9 fl (7.4-10.4); Platelet Count Result 280 k/mm3 (150-375); Red Blood Count 2.57 M/mm3 (4.6-6.20); White Blood Count 14.4 K/mm3 (4.5-10.0)
[2023-01-20 06:47] VITALS: BP 119/67; PULSE 66; RESP 14; TEMP 36.7; O2SAT 99
[2023-01-20 07:03] LABS: Alanine Aminotransferase 238 U/L (6-50); Albumin Level 2.6 g/dL (3.5-5.1); Alkaline Phosphatase 109 U/L (38-126); Anion Gap 2 mmol/L (8-16); Aspartate Amino Transferase 160 U/L (17-59); Bilirubin,Total 0.5 mg/dL (0.2-1.3); Blood Urea Nitrogen 7 mg/dL (9-20); Carbon Dioxide 28 mmol/L (22-30); Chloride 103 mmol/L (98-107); Creatine Kinase 36 U/L (55-170); Estimated CRCL calculation 129 ml/min; Estimated Glomerular Filt Rate > 60; Glucose 94 mg/dL (65-110); Potassium 4.3 mmol/L (3.4-5.0); Sodium 133 mmol/L (137-145)
[2023-01-20] MEDS: cefTRIAXone 2 GM/NS 100 ML 2 GM/100 ML BAG IVPB (10:00)
[2023-01-20] MEDS: PANTOPRAZOLE SODIUM IV 40 MG VIAL IV PUSH (10:02)
--- NOTE | 2023-01-20 11:45 | P.PNIM_ITS ---
Progress Note: A&P Assessment and Plan (1) Abscess of hand: Code(s): L02.519 - Cutaneous abscess of unspecified hand Status: Acute Assessment and Plan: Patient presents with left hand pain and swelling. Was treated with keflex without benefit * Left hand xray showing edema but negative for bony erosions or gas (he has a hx of left hand surgery) * BCx 01/17: NGTD * Left hand I&D in ED and cultures 01/17: growing MRSA * Given meropenem, vancomycin and clindamycin in ED * Continued on Vanco and Rocephin * WBC trending down * Plastics consulted but no further I&D planned * Narrow abx to Vanco. (2) Spider bite: Qualifiers: Encounter type: sequela Injury intent: accidental or unintentional Qualified Code(s): T63.301S - Toxic effect of unspecified spider venom, accidental (unintentional), sequela Code(s): T63.301A - Toxic effect of unspecified spider venom, accidental (unintentional), initial encounter Status: Acute Assessment and Plan: Complicated by abscess formation * As above (3) Anemia: Qualifiers: Anemia type: unspecified type Qualified Code(s): D64.9 - Anemia, unspecified Code(s): D64.9 - Anemia, unspecified Status: Acute Assessment and Plan: Hgb 8.9 on admission but dropped to 5.7 * Normochromic and normocytic * Etiology unclear * Iron studies concerning for anemia of chronic disease * B12 and folate low end of normal. MMA pending * Stool guaiac positive * Hemolysis unlikely. BM failure unlikely given high retic count * GI source of blood loss; he admits to taking NSAIDS * Continue Protonix for possible PUD/gastritis * GI consulted with plans for colo/EGD today (4) Hyponatremia: Code(s): E87.1 - Hypo-osmolality and hyponatremia Status: Acute Assessment and Plan: Sodium 130 on admission. * Possibly related to recent decreased p.o. intake * FENa 1% to suggest renal disease. * Possibly underlying renal disease * Renal function normal. UA clear. * Sodium better today. Follow (5) Leukocytosis: Qualifiers: Leukocytosis type: bandemia Qualified Code(s): D72.825 - Bandemia Code(s): D72.829 - Elevated white blood cell count, unspecified Status: Acute Assessment and Plan: WBC eelvated on admission and climbed to 32K with left shift * Presumably due to the above infection * Repeat WBC better * Continue to monitor to ensure approrpiate trend (6) Abnormal liver enzymes: Code(s): R74.8 - Abnormal levels of other serum enzymes Status: Acute Assessment and Plan: LFTs on admission (01/17) elevated with ALT 148 with NL AST (42). TP low at 5.0 and Albumin 2.6. * HIV and hepatitis negative. * Possibly due to allopurinol. * Repeat values worse with AST 160 and ALT 238 * Check RUQ US Plan DVT Prophylaxis - SCD Code status - full Subjective Date/time seen: 01/20/23 11:45 Interval history: 52yo male with gout here for left hand pain and swelling. Feels better. Hand less edenatous. No surgical intervention. ROM better. Tolerated bowel prep overnight. Had dark 'tarry' stools with prep. Exam Narrative: AF 98.0 119/67 66 14 99% ra Gen - NARD Chest - CTA bilaterally, nml RR CV - RRR S1/S2 Abd - Soft, NT/ND, Positive BS Ext - No pedal edema. Neuro - Alert and oriented. Left fingers with normal sensation. Left virtualization engineer strength limited but better Psych - Nml
--- NOTE | 2023-01-20 11:45 | PM.IMPN ---
Progress Note: A&P Assessment and Plan (1) Abscess of hand: Code(s): L02.519 - Cutaneous abscess of unspecified hand Status: Acute Assessment and Plan: Patient presents with left hand pain and swelling. Was treated with keflex without benefit Left hand xray showing edema but negative for bony erosions or gas (he has a hx of left hand surgery) BCx 01/17: NGTD Left hand I&D in ED and cultures 01/17: growing MRSA Given meropenem, vancomycin and clindamycin in ED Continued on Vanco and Rocephin WBC trending down Plastics consulted but no further I&D planned Narrow abx to Vanco. (2) Spider bite: Qualifiers: Encounter type: sequela Injury intent: accidental or unintentional Qualified Code(s): T63.301S - Toxic effect of unspecified spider venom, accidental (unintentional), sequela Code(s): T63.301A - Toxic effect of unspecified spider venom, accidental (unintentional), initial encounter Status: Acute Assessment and Plan: Complicated by abscess formation As above (3) Anemia: Qualifiers: Anemia type: unspecified type Qualified Code(s): D64.9 - Anemia, unspecified Code(s): D64.9 - Anemia, unspecified Status: Acute Assessment and Plan: Hgb 8.9 on admission but dropped to 5.7 Normochromic and normocytic Etiology unclear Iron studies concerning for anemia of chronic disease B12 and folate low end of normal. MMA pending Stool guaiac positive Hemolysis unlikely. BM failure unlikely given high retic count GI source of blood loss; he admits to taking NSAIDS Continue Protonix for possible PUD/gastritis GI consulted with plans for colo/EGD today (4) Hyponatremia: Code(s): E87.1 - Hypo-osmolality and hyponatremia Status: Acute Assessment and Plan: Sodium 130 on admission. Possibly related to recent decreased p.o. intake FENa 1% to suggest renal disease. Possibly underlying renal disease Renal function normal. UA clear. Sodium better today. Follow (5) Leukocytosis: Qualifiers: Leukocytosis type: bandemia Qualified Code(s): D72.825 - Bandemia Code(s): D72.829 - Elevated white blood cell count, unspecified Status: Acute Assessment and Plan: WBC eelvated on admission and climbed to 32K with left shift Presumably due to the above infection Repeat WBC better Continue to monitor to ensure approrpiate trend (6) Abnormal liver enzymes: Code(s): R74.8 - Abnormal levels of other serum enzymes Status: Acute Assessment and Plan: LFTs on admission (01/17) elevated with ALT 148 with NL AST (42). TP low at 5.0 and Albumin 2.6. HIV and hepatitis negative. Possibly due to allopurinol. Repeat values worse with AST 160 and ALT 238 Check RUQ US Plan DVT Prophylaxis - SCD Code status - full Subjective Date/time seen: 01/20/23 11:45 Interval history: 52yo male with gout here for left hand pain and swelling. Feels better. Hand less edenatous. No surgical intervention. ROM better. Tolerated bowel prep overnight. Had dark 'tarry' stools with prep. Exam Narrative: AF 98.0 119/67 66 14 99% ra Gen - NARD Chest - CTA bilaterally, nml RR CV - RRR S1/S2 Abd - Soft, NT/ND, Positive BS Ext - No pedal edema. Neuro - Alert and oriented. Left fingers with normal sensation. Left garbage person strength limited but better Psych - Nml mood and affect Skin - left hand DARREN wrapped Objective Data Vital Signs Vital Signs: Vital Signs - 24 hr 01/19/23 14:00 01/19/23 20:08 01/19/23 20:00 Temperature 97.6 F 98.7 F Pulse Rate 86 80 80 Respiratory Rate 16 16 16 Blood Pressure 137/72 135/65 Pulse Oximetry 100 93 93 Oxygen Delivery Room Air 01/20/23 06:47 01/20/23 10:00 Temperature 98.0 F Pulse Rate 66 Respiratory Rate 14 Blood Pressure 119/67 Pulse Oximetry 99 Oxygen Delivery Room Air Intake/Output Intake/Outp
[2023-01-20 12:29] LABS: Hematocrit 25.2 % (42.0-52.0); Hemoglobin 8.1 g/dL (14.0-18.0)
[2023-01-20 13:09] VITALS: BP 139/77; PULSE 68; RESP 18; TEMP 36.5; O2SAT 100
[2023-01-20] MEDS: LACTATED RINGERS 1,000 ML 150 ML IV CONT (13:11)
--- NOTE | 2023-01-20 13:45 | WPDANESEPPF ---
Anes - Initial Pre Proc Eval Procedure: Operation Date: 01/20/23 14:30 Proposed Procedures p Esophagogastroduodenoscopy & Colonoscopy - Andrew Padilla MD Date/Time: 01/20/23 13:45 Surgeon: Oniel Mcknight MD Pre Op Diagnosis: Abscess of Left Hand Patient Data Age: 52 Gender: M Height: 1.8 m Weight: 93.9 kg Last Vital Signs Temp 97.7 F 01/20/23 13:09 Pulse 68 01/20/23 13:09 Resp 18 01/20/23 13:09 BP 139/77 01/20/23 13:09 Pulse Ox 100 01/20/23 13:09 O2 Del Method Room Air 01/20/23 13:09 Allergies Allergy/AdvReac Type Severity Reaction Status Date / Time No Known Allergies Allergy Verified 01/17/23 05:50 Home Medications Medication Instructions Recorded Confirmed Type No Home Medications 01/17/23 01/17/23 History Laboratory Tests 01/19/23 01/19/23 01/20/23 18:37 21:01 05:43 WBC 14.4 H K/mm3 (4.5-10.0) RBC 2.57 L M/mm3 (4.6-6.20) Hgb 7.8 L g/dL (14.0-18.0) Hct 24.4 L % (42.0-52.0) MCV 94.9 fl (80-100) MCH 30.4 pg (26-34) MCHC 32.0 g/dl (32-36) RDW 18.0 H % (11.5-14.5) Plt Count 280 k/mm3 (150-375) MPV 8.9 fl (7.4-10.4) Sodium 133 L mmol/L (137-145) Potassium 4.3 mmol/L (3.4-5.0) Chloride 103 mmol/L (98-107) Carbon Dioxide 28 mmol/L (22-30) Anion Gap 2 L mmol/L (8-16) BUN 7 L D mg/dL (9-20) Creatinine 0.60 L mg/dL (0.7-1.3) Estim Creat Clear Calc 129 ml/min Estimated GFR > 60 (59 - ) Glucose 94 mg/dL (65-110) Calcium 8.0 L mg/dL (8.4-10.2) Total Bilirubin 0.5 mg/dL (0.2-1.3) AST 160 H U/L (17-59) ALT 238 H U/L (6-50) Alkaline Phosphatase 109 U/L (38-126) Total Creatine Kinase 36 L U/L (55-170) Total Protein 5.0 L g/dL (6.3-8.2) Albumin 2.6 L g/dL (3.5-5.1) Stl Occult Blood (IFOB) Positive H (N) Vancomycin Trough 18.9 ug/mL (10.0-20.0) 01/20/23 12:16 WBC RBC Hgb 8.1 L g/dL (14.0-18.0) Hct 25.2 L % (42.0-52.0) MCV MCH MCHC RDW Plt Count MPV Sodium Potassium Chloride Carbon Dioxide Anion Gap BUN Creatinine Estim Creat Clear Calc Estimated GFR Glucose Calcium Total Bilirubin AST ALT Alkaline Phosphatase Total Creatine Kinase Total Protein Albumin Stl Occult Blood (IFOB) Vancomycin Trough Patient hx anesthesia problems: none Family hx anesthesia problems: none Results Review: All pre-operative results and documents have been reviewed as part of the pre-operative evaluation. 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 Smoking status: Never smoker Alcohol intake: current Substance use: never Lack of Transportation: No Lack of Food: Never True Current Housing: I Have Housing Concerned About Future Housing: No Difficulty Paying Gas/Electric Bills: No Difficulty Paying for Meds: No Currently Unemployed: No Education: Decline to Answer Difficulty w/ Childcare or Family Care: No Spiritual care concerns: No Anes - Eval Final PreProcedure Day of Procedure 01/20/23 13:45 Patient weight: obese Heart: regular rate and rhythm Lungs: clear to auscultati
--- NOTE | 2023-01-20 14:39 | SUR.OPER ---
EGD end 1434 COLONOSCOPY 1439
[2023-01-20 14:55] VITALS: BP 93/57; PULSE 72; RESP 20; O2SAT 99
[2023-01-20 15:05] VITALS: BP 108/53; PULSE 68; RESP 20; O2SAT 100
[2023-01-20 15:15] VITALS: BP 115/74; PULSE 66; RESP 20; O2SAT 100
[2023-01-20] MEDS: allopurinoL 100 MG TABLET 200 MG PO (15:40)
[2023-01-20 15:45] VITALS: BP 116/70; PULSE 70; RESP 16; TEMP 36.6; O2SAT 100
[2023-01-20 17:48] LABS: Hematocrit 28.3 % (42.0-52.0); Hemoglobin 8.9 g/dL (14.0-18.0)
--- NOTE | 2023-01-20 18:37 | PM.DS ---
DS: Admitting Diagnosis Discharge Date 01/20/23 Admitting Diagnosis Left hand pain and swelling DS: Discharge Diagnosis Discharge Diagnosis (1) Abscess of hand: Code(s): L02.519 - Cutaneous abscess of unspecified hand Status: Acute (2) Spider bite: Qualifiers: Encounter type: sequela Injury intent: accidental or unintentional Qualified Code(s): T63.301S - Toxic effect of unspecified spider venom, accidental (unintentional), sequela Code(s): T63.301A - Toxic effect of unspecified spider venom, accidental (unintentional), initial encounter Status: Acute (3) Anemia: Qualifiers: Anemia type: unspecified type Qualified Code(s): D64.9 - Anemia, unspecified Code(s): D64.9 - Anemia, unspecified Status: Acute (4) Hyponatremia: Code(s): E87.1 - Hypo-osmolality and hyponatremia Status: Acute (5) Leukocytosis: Qualifiers: Leukocytosis type: bandemia Qualified Code(s): D72.825 - Bandemia Code(s): D72.829 - Elevated white blood cell count, unspecified Status: Acute (6) Abnormal liver enzymes: Code(s): R74.8 - Abnormal levels of other serum enzymes Status: Acute (7) Rodríguez's esophagus without dysplasia: Code(s): K22.70 - Rodríguez's esophagus without dysplasia Status: Acute (8) Gastritis and duodenitis: Code(s): K29.90 - Gastroduodenitis, unspecified, without bleeding Status: Acute (9) Diverticulosis of large intestine without perforation or abscess without bleeding: Code(s): K57.30 - Diverticulosis of large intestine without perforation or abscess without bleeding Status: Acute (10) Polyp of colon: Code(s): K63.5 - Polyp of colon Status: Acute (11) Hemorrhoids, internal: Code(s): K64.8 - Other hemorrhoids Status: Acute DS: Summary Hospital Course Reason for hospitalization: 52yo male with gout here for left hand pain and swelling. Please see H&P for details. Hospital Course: Patient presents with left hand pain and swelling. Was treated with keflex without benefit. Left hand xray showing edema but negative for bony erosions or gas (he has a hx of left hand surgery). BCx 01/17: NGTD. Left hand I&D in ED and cultures 01/17: growing MRSA. WBC was 32K. Given meropenem, vancomycin and clindamycin in ED and continued on Vanco and Rocephin. WBC trended down. Plastics consulted but no further I&D planned. Edema and ROM improved. Hgb 8.9 on admission but dropped to 5.7 and received 2Units of PRBC. . Iron studies concerning for anemia of chronic disease. B12 low end of normal.? MMA pending. Stool guaiac positive. Hemolysis unlikely. BM failure unlikely given high retic count. GI source of blood loss; he admits to taking NSAIDS. Started on Protonix for possible PUD/gastritis and Gi consulted. Patient underwent EGD showing Rodríguez's esophagus, ulcerative gastritis and moderate ulcerative duodenitis. Colonoscopy showed diverticulosis and internal hemorrhoids. He also had colon polyps that were removed. Although no active bleeding was noted, it was felt that the gastric and duodenal ulcers could explain the anemia. Serial Hgb should stability of hgb after transfusion. Sodium 130 on admission. Possibly related to recent decreased p.o. intake. Renal function normal. Sodium improved. LFTs on admission were elevated with ALT 148 with NL AST (42). TP low at 5.0 and Albumin 2.6. HIV and hepatitis negative.?Repeat values worse with AST 160 and ALT 238. Possibly due to allopurinol or from his current infection. Will repeat as outpatient. Patient was eager for discharge. His Hgb stable and his infection improving. He overall did well and was able to be discharged home on 01/20/23. Status at Discharge Cognitive/behavioral status at discharge: stable Time Spent with Patient Time attestation: Total time spent providing and/or coordinating discharge services: 35 minutes
--- NOTE | 2023-01-21 14:42 | WPDANESPN ---
Anes - Prog Note Post-Op Date/Time: 01/21/23 14:42 Cardiovascular status: normal Respiratory status: normal Airway patency: baseline Mental status: baseline Post-Op hydration status: normal Vital Signs: Last Vital Signs Temp 36.6 C 01/20/23 15:45 Pulse 70 01/20/23 15:45 Resp 16 01/20/23 15:45 BP 116/70 01/20/23 15:45 Pulse Ox 100 01/20/23 15:45 O2 Del Method Room Air 01/20/23 15:15 Pain Score (VAS): 0 Laboratory Tests 01/20/23 17:44 01/20/23 05:43 01/20/23 17:44 Hgb 8.9 L Hct 28.3 L Microbiology 01/19/23 15:34 Abscess Anaerobic Culture - Preliminary 01/19/23 15:34 Abscess Aerobic Culture - Preliminary Staphylococcus aureus 01/17/23 08:13 Hand Left Wound Culture - Final Methicillin Resis Staph Aureus Post-procedural complaints: none Patient Feedback: Patient satisfied with anesthetic care.
[2023-01-21 21:58] LABS: Methylmalonic Acid 223 nmol/L (87-318)
[2023-01-22 08:53] LABS: Haptoglobin 292 mg/dL (43-212)
--- NOTE | 2023-01-24 12:25 | PC.NURSE ---
the second critical H&H that was reported from lab on 01/18/23 was not charted due to a draw of the H&H even though this nurse was waiting on a unit of blood to be ready to give per order. Provider already knew H&H was low and critical.
== END 2023-01-20 19:30 | disposition home or self-care (01) | DRG 603 ==
LOC: ANHED 07:13 → ANH3MEDSUR 11:34 → ANH2MED 11:35
PROVIDERS: Internal Medicine; Internal Medicine Gastroenterology; Admitting Provider Internal Medicine; Emergency Provider Preventive Medicine Aerospace Medicine; Visit Provider Internal Medicine
PROC: 0DJ08ZZ Inspection of Upper Intestinal Tract, Via Natural or Artificial Opening Endoscopic (ICD-10-PCS; CPT 43235; principal; 2023-01-20 14:30)
DX: L02.512 Cutaneous abscess of left hand (principal); E87.1 Hypo-osmolality and hyponatremia; K22.70 Barrett's esophagus without dysplasia; K29.70 Gastritis, unspecified, without bleeding; K29.80 Duodenitis without bleeding; K57.30 Diverticulosis of large intestine without perforation or abscess without bleeding; K63.5 Polyp of colon; K64.8 Other hemorrhoids; B95.62 Methicillin resistant Staphylococcus aureus infection as the cause of diseases classified elsewhere; T63.301A Toxic effect of unspecified spider venom, accidental (unintentional), initial encounter; D64.9 Anemia, unspecified; R74.8 Abnormal levels of other serum enzymes; M10.9 Gout, unspecified
CPT/HCPCS: 10060; 36415; 36430; 73130; 80053; 80074; 80202; 81003; 82248; 82274; 82550; 82570; 82607; 82746; 83010; 83540; 83550; 83605; 83615; 83921; 84300; 84443; 84550; 85014; 85018; 85025; 85027; 85046; 85610; 86038; 86703; 86850; 86900; 86901; 86923; 87040; 87070; 87075; 87081; 87147; 87181; 87186; 87205; 88305; 96365; 96366; 96375; 96376; 99285; A9270; C9113; G0378; G0432; J0696; J1885; J2185; J2270; J2405; J2704; J3370; J7050; J7120; P9016